=== PATIENT | female | born 1995 | race African-American/Black ===

== ENCOUNTER 2021-11-22 18:43 | Emergency (ER) | payer BC, MEDICAID ==
[~2021-11-22] VITALS: Ht 160 cm; Wt 70.0 kg
[2021-11-22] MEDS ORDERED: HYDROCODONE/ACETAMINOPHEN 5/325MG TABLET PO ONE (22:15)
[2021-11-23] MEDS ORDERED: MORPHINE SULFATE 4 MG/ML CPJ (NOT FOR IM USE) IV ONE (01:00)
[2021-11-23 01:09] LABS: BASOPHILS % 0.4 % (0.0-2.0); HEMATOCRIT. 38.1 % (36.0-48.0); HEMOGLOBIN. 12.7 g/dL (12.0-16.0); LYMPHOCYTES % 16.4 % (20.0-50.0); MEAN CORPUSCULAR VOLUME 87.1 fL (81.0-99.0); MEAN PLATELET VOLUME 7.9 fl (7.4-10.4); MONOCYTES % 6.9 % (2.0-8.0); NEUTROPHILS % 76.3 % (40.0-76.0); PLATELET 377 x1000/uL (130-400); RED BLOOD CELL COUNT 4.38 mill/uL (4.2-5.4); RED CELL DISTRIBUTION WIDTH 13.2 % (11.6-14.6)
[2021-11-23 01:39] LABS: CHLORIDE 104 mEq/L (98-107)
[2021-11-23 01:56] LABS: PROTHROMBIN TIME 10.3 sec (9.6-11.0)
[2021-11-23] MEDS ORDERED: MORPHINE SULFATE 4 MG/ML CPJ (NOT FOR IM USE) IV PRN (03:15)
[2021-11-23 05:41] VITALS: BP 149/91
== END 2021-11-23 05:59 | disposition short-term general hospital (02) ==
LOC: ER 18:43
DX: S82.241A Displaced spiral fracture of shaft of right tibia, initial encounter for closed fracture (principal); S82.831A Other fracture of upper and lower end of right fibula, initial encounter for closed fracture; Y93.19 Activity, other involving water and watercraft; Y92.831 Amusement park as the place of occurrence of the external cause
CPT/HCPCS: 29505; 36415; 73590; 73610; 80053; 85025; 85610; 96374; 99285; J2270